=== PATIENT | male | born 1950 | race Two or more races ===

== ENCOUNTER 2022-01-03 23:38 | Emergency (ER) | payer OTHER ==
[2022-01-04 00:02] VITALS: BP 162/90; PULSE 78; TEMP 97.6; BMI 24.5
[2022-01-04 01:51] LABS: EPI CELLS 1 /uL (0-25.1); HYALINE CASTS 0 /uL (0-3.1); URINE APPEARANCE CLEAR; URINE BACTERIA 1 /uL (0-1359); URINE BILIRUBIN NEGATIVE (NEGATIVE); URINE COLOR YELLOW; URINE GLUCOSE (UA) NEGATIVE (NEGATIVE); URINE KETONE NEGATIVE (NEGATIVE); URINE LEUK ESTERASE NEGATIVE (NEGATIVE); URINE NITRITE NEGATIVE (NEGATIVE); URINE PROTEIN 1+ (NEGATIVE); URINE RBC 91 /uL (0-23.9); URINE UROBILINOGEN 0.2 mg/dL (0.2-1.0); URINE WBC 2 /uL (0-25.8)
== END 2022-01-04 02:33 | disposition home or self-care (01) ==
LOC: JER 23:38
DX: R33.9 Retention of urine, unspecified (principal)
CPT/HCPCS: 81003; 87086; 99284-25

== ENCOUNTER 2022-01-13 21:13 | Emergency (ER) | payer OTHER ==
[2022-01-13 21:40] VITALS: BP 136/71; PULSE 78; RESP 18; TEMP 97.7; BMI 39.2
== END 2022-01-14 00:20 | disposition home or self-care (01) ==
LOC: JER 21:13
DX: T83.9XXA Unspecified complication of genitourinary prosthetic device, implant and graft, initial encounter (principal)
CPT/HCPCS: 99283-25

== ENCOUNTER 2024-01-09 05:13 | Day surgery (SDC) | payer OTHER ==
[2024-01-09 08:36] VITALS: BMI 24.8
[2024-01-09 08:43] VITALS: RESP 20
[2024-01-09] MEDS ORDERED: MIDAZOLAM HCL 2 MG/2 ML SINGLE DOSE VIAL ONE (09:23)
[2024-01-09 11:46] VITALS: BP 144/78; PULSE 66; TEMP 98
== END 2024-01-09 11:54 | disposition home or self-care (01) ==
LOC: JASU-SURG 05:13
PROVIDERS: ATTEND Urology
PROC: 0TF3XZZ Fragmentation in Right Kidney Pelvis, External Approach (ICD-10-PCS; principal; 2024-01-09 09:31)
DX: N20.0 Calculus of kidney (principal)